=== PATIENT | male | born 1965 | race Caucasian/White ===

== ENCOUNTER 2021-04-24 10:57 | Inpatient (IN) | payer MEDICAID, SELFPAY ==
[2021-04-24] VITALS (12 sets, daily range): BP systolic 100–154; BP diastolic 75–113; PULSE 86–120; RESP 17–24; TEMP 36.4–36.9; O2SAT 95–97; BMI 32.2
--- NOTE | 2021-04-24 11:12 | EKG12_ITS ---
Test Reason : CP/SOB Blood Pressure : / mmHG Vent. Rate : 121 BPM Atrial Rate : 121 BPM P-R Int : 158 ms QRS Dur : 084 ms QT Int : 326 ms P-R-T Axes : 052 015 157 degrees QTc Int : 462 ms Sinus tachycardia with occasional Premature ventricular complexes Nonspecific ST and T wave abnormality Abnormal ECG Confirmed by CHAZ GARCIA, ASHLIE ([id number]), sound editor VALE BERMEO ([id number]) on 04/26/2021 12:52:00 PM Referred By: MART Confirmed By:ASHLIE WARE MD
--- NOTE | 2021-04-24 11:12 | CT_ITS ---
STUDY: CTA CHEST REASON FOR EXAM: Male, 55 years old. dyspnea RADIATION DOSAGE (If Supplied By Facility): CTDIvol = ( 15.04 ) mGy, DLP = ( 519.46 ) mGycm TECHNIQUE: The examination was performed with the intravenous administration of IV 100mL Isovue-370. Post-processing of the angiographic images was performed, with multiplanar reformation and 3D reconstruction. Individualized dose optimization techniques were used for this CT. COMPARISON: None. FINDINGS: Normal enhancement of the main pulmonary artery and right and left pulmonary arteries. Normal enhancement of the bilateral peripheral pulmonary arteries. There is no demonstrated pulmonary embolism. Normal thoracic aorta and visualized great vessels. There is no demonstrated aortic dissection. Normal heart and pericardium. Normal mediastinum. Normal hilar regions. Normal visualized trachea and bronchi. The lungs are well expanded. Bilateral basilar posterior atelectatic changes are present secondary to effusions. Moderate bilateral layering pleural effusions are present. Normal chest wall structures. Normal osseous structures. Normal visualized upper abdomen. CT/CTA Chest W/WO Contrast IMPRESSION: 1. No evidence of pulmonary embolism or aortic dissection. 2. Moderate bilateral pleural effusions and posterior basilar atelectatic changes with no distinct focal consolidation. Electronically Signed: Parker Aldridge DO at 12:26 EDT , Service support ,
--- NOTE | 2021-04-24 11:15 | NURSING ---
NO OLD EKGS
[2021-04-24 11:18] LABS: Absolute Lymphocyte Count 1.71 X10^3/uL (0.83-4.51); Absolute Neutrophil Count 6.3 X10^3/uL (2.0-7.7); Basophil# 0.02 X10^3/uL; Basophil% 0.2 % (0-1); Eosinophil# 0.09 X10^3/uL; Hematocrit 50.5 % (40-54); Lymphocyte # 1.71 X10^3/ul (0.83-4.51); Lymphocyte % 18.7 % (19-41); Mean Corp Hgb Conc 31.7 g/dL (32-36); Mean Corpuscular Hgb 29.7 pg (27.0-32.0); Mean Corpuscular Volume 93.7 fL (80-94); Mean Platelet Vol. 10.5 fl (6.2-12.0); Monocyte# 0.96 X10^3/uL; Monocyte% 10.5 % (0-10); NRBC Flagged by Analyzer 0 % (0-5); Neutrophil # 6.34 X10^3/uL (2.7-7.7); Neutrophil % 69.3 % (47-70); Platelet Count 217 K/mm3 (150-450); RBC Distribution Width SD 48.6 fl (35.1-43.9); Red Blood Count 5.39 M/mm3 (4.6-6.2); White Blood Count 9.2 K/mm3 (4.4-11.0)
[2021-04-24 11:44] LABS: BNP,B-Type NATRIURETIC PEPTIDE 583.8 pg/mL (0-100)
[2021-04-24] MEDS: Aspirin 81 MG TAB.CHEW 324 MG PO (11:47)
[2021-04-24 11:48] LABS: Anion Gap 6 (5-15); BUN 26 mg/dL (7-18); Calcium,Total 9.5 mg/dL (8.5-10.1); Chloride 105 mmol/L (98-107); Creatinine, Serum 1.18 mg/dL (0.70-1.30); EST Glomerular Filtration Rate 68 mL/min (>60); Est Glom Filt Rate - Afr Amer 82 mL/min (>60); Estimated Creatinine Clearance 76.22 ml/min; Glucose 216 mg/dL (74-106); Magnesium 2.2 mg/dL (1.6-2.6); Potassium 4.3 mmol/L (3.5-5.1); Sodium Level 140 mmol/L (136-145); Thyroid Stim Hormone (TSH) 1.44 uIU/mL (0.358-3.74)
--- NOTE | 2021-04-24 12:47 | HP.PCM.HOS_ITS ---
HPI - General General Date of Admission: 04/24/21 HPI Narrative SIMEON العراقي, is a 55 M who presents with a complaint of shortness of breath which had been going on for one week and worsening. He had associated heaviness in his chest, with lower extremity edema. He says he recently had his medical tests 3 weeks ago for his life insurance, and was told his A1C was elevated at 7.8. He does not have a PCP and states he has not seen one in years and did not see any doctor about his A1c yet. He also said he had been having chest pressure and heaviness as the shortness of breath worsened. He denied any orthopnea or PND. He was also found to have a new heart murmur. He denied any palpitations or dizziness, fever chills, nausea vomiting. Review of systems otherwise negative. Vitals in [facility] ED showed temp of 97.9F with HR of 120, blood pressure of 154/113 and respiratory of 24. He was saturating at 97% on room air. CTA of the chest done was negative for PE but showed bilateral pleural effusions. EKG showed no acute ST changes. CBC and BMP were unremarkable and BNP was elevated at 583.8. Initial troponin was negative. He has been admitted to be managed for acute heart failure of unknown EF as well as new murmur. [facility] Home Medications NK 04/24/21 [History Last Taken Unknown] Allergy/AdvReac Type Severity Reaction Status Date / Time Penicillins [PCN] Allergy PT UNSURE Verified 04/24/21 10:59 OF REACTION Social History Smoking Status: Never smoker ROS Review of Systems ROS Unobtainable: Denies due to encephalopathy Constitutional Constitutional: Reports fatigue, malaise and weakness; Denies anorexia, change in weight, chills or fever(s) Eyes Eyes: Denies blurry vision ENT HEENT: Denies headache(s), hearing loss, nasal discharge or post nasal drip Cardiovascular Cardiovascular: Reports dyspnea on exertion, edema, orthopnea, palpitations and rapid heart rate; Denies chest pain, lightheadedness or paroxysmal nocturnal dyspnea Respiratory/Chest Respiratory/Chest: Reports dyspnea, shortness of breath at rest and shortness of breath with exertion; Denies cough, excessive phlegm production, hemoptysis or productive cough Gastrointestinal Gastrointestinal: Denies abdominal pain, coffee ground emesis, nausea or vomiting Genitourinary Genitourinary: Denies burning urination Musculoskeletal Musculoskeletal: Denies arthralgias Neurologic Neurologic: Denies abnormal gait or abnormal speech Psychiatric Psychiatric: Denies anxiety or depression Endocrine Endocrinology: Denies change in body appearance Hematologic/Lymphatic Hematologic/Lymphatic: Denies anemia Allergic/Immunologic Allergic/Immunologic: Denies asthma Vital Signs Vital Signs Vital Signs: 04/24/21 10:58 04/24/21 11:00 04/24/21 11:06 Temperature 97.9 F 97.9 F Temperature Source Temporal Temporal Pulse Rate 120 H 120 H Respiratory Rate 22 H 24 H 24 H Respiratory Effort Non-Labored Short of Breath Respiratory Depth Normal Respiratory Pattern Tachypnea Blood Pressure 154/113 H 154/113 H Blood Pressure Mean 126 126 Pulse Ox 97 97 Oxygen Delivery Method Room Air Room Air 04/24/21 11:24 Temperature Temperature Source Pulse Rate Respiratory Rate Respiratory Effort Respiratory Depth Respiratory Pattern Blood Pressure Blood Pressure Mean Pulse Ox 97 Oxygen Delivery Method Room Air Weight Weight: 231 lb 0.711 oz Body Mass Index (BMI) 32.2 Physical Exam Const alert, oriented x3 and no apparent distress General Appearance: cooperative HEENT normocephalic, head/scalp atraumatic and hearing grossly normal bilaterally Eyes PERRL, EOMs intact bilaterally and conjunctivae normal Neck no lymphadenopathy, supple and no JVD Resp Resp Narrative: tachypneic, short of breath, diminished breath sounds bibasally, no wheezes or crackles. On room air. Cardio regular rate, regular rhythm, S1 normal heart sound and S2 normal heart sound Cardio Narrative: grade 2-3 systolic murmur loudest in the aortic region, but also present in the tricuspid and pulmonary valvular regions. GI normal to inspection, nondistended, normoactive bowel sounds, soft to palpation, non-tender and non-distended Extremity normal to inspection and full ROM Extremity Narrative: bilateral 2+ lower extremity edema Peripheral Pulses: Yes pulses 2+ throughout Skin no rashes or lesions noted Neuro oriented x3 Sensorium / Orientation: awake and alert Psych affect normal Lab / Micro Data Result Diagrams: 04/24/21 11:10 04/24/21 11:10 Labs: Laboratory Results - last 24 hr 04/24/21 04/24/21 04/24/21 11:10 11:10 11:10 WBC 9.2 RBC 5.39 Hgb 16.0 Hct 50.5 MCV 93.7 MCH 29.7 MCHC 31.7 L RDW Std Deviation 48.6 H RDW Coeff of Vance 14.0 Plt Count 217 MPV 10.5 Immature Gran % (Auto) 0.300 Neut % (Auto) 69.3 Lymph % (Auto) 18.7 L [place] % (Auto) 10.5 H Eos % (Auto) 1.0 Baso % (Auto) 0.2 Absolute Neuts (auto) 6.3 Absolute Lymphs (auto) 1.71 Nucleated RBC % 0 Sodium 140 Potassium 4.3 Chloride 105 Carbon Dioxide 29.0 Anion Gap 6 BUN 26 H Creatinine 1.18 Estim Creat Clear Calc 76.22 Est GFR (MDRD) Af Amer 82 Est GFR (MDRD) Non-Af 68 BUN/Creatinine Ratio 22.0 H Glucose 216 H Calcium 9.5 Magnesium 2.2 Troponin I 0.029 B-Natriuretic Peptide 583.8 H TSH 1.44 Radiology Impression Chest CTA 04/24/21 11:12 IMPRESSION: 1. No evidence of pulmonary embolism or aortic dissection. 2. Moderate bilateral pleural effusions and posterior basilar atelectatic changes with no distinct focal consolidation. Electronically Signed: Parker AldridgeDO at 12:26 EDT , Service support , Assessment & Plan Assessment/Plan (1) Acute heart failure: (2) Murmur, cardiac: PLAN: #Acute heart failure of unknown EF * Admit to the PCU with telemetry * Start diuresing with IV Lasix 40 mg twice daily. Monitor intake and output. Fluid restriction 1500 cc daily. * Cardiology consulted. Get 2D echo. * Breathing treatments with bronchodilators. Titrate oxygen to maintain saturation above 90%. * #Cardiac murmur * appears to be an aortic stenosis murmur. 2D echo ordered * #Type 2 diabetes mellitus * says he was recently told his A1C was 7.8. Will recheck A1C and start on ISS and oral metformin. * Accuchecks ACHS * DVT prophylaxis: lovenox Code status: full code * Patient and his counseled about differences between full code, DNR CCA and DNR CCA. Patient elects to be full code. Total [id number] time 16 minutes. Visit Charges Inpatient E&M: 64728 Init Hosp L3 Procedures Hospitalists Procedures: 43878 Advncd Care Plan 30 Min
[2021-04-24] MEDS: Furosemide 40 MG/4 ML Vial IV ×2 (12:55→18:03)
--- NOTE | 2021-04-24 12:55 | EDS_ITS ---
HPI History of Present Illness Chief Complaint: Shortness of Breath Informant: patient Narrative Narrative: 55-year-old male with no past medical history presents with concern for shortness of breath. States is progressed over 1 week. States he is also had swelling in his lower extremities. States last night he felt a heaviness in his chest. States that is resolved today but his shortness of breath is worse particularly on exertion. Denies any nausea, vomiting, diaphoresis. Patient denies any drug alcohol or tobacco abuse. Denies any fever, chills, cough or sick contacts. PFSH PFSH Home Medications NK 04/24/21 [History Last Taken Unknown] Allergy/AdvReac Type Severity Reaction Status Date / Time Penicillins [PCN] Allergy PT UNSURE Verified 04/24/21 10:59 OF REACTION Social History Smoking Status: Never smoker ROS ROS ED Constitutional Constitutional ED: Denies chills, fever(s) or sweats Eyes Eyes: Denies blurry vision, change in vision or diplopia ENT ENT ED: Denies rhinorrhea or sore throat Cardiovascular Cardiovascular: Reports chest pain; Denies orthopnea, palpitations or racing heartbeat Respiratory/Chest Respiratory/Chest: Reports dyspnea and dyspnea on exertion; Denies cough, orthopnea or sputum Gastrointestinal Gastrointestinal: Denies abdominal pain, constipation, diarrhea, melena, nausea or vomiting Genitourinary Genitourinary ED: Denies dysuria, hematuria or urinary frequency Musculoskeletal Musculoskeletal: Reports other Details: Lower extremity edema ; Denies arthralgias, myalgias or neck pain Integumentary Denies rash Neurologic Neurologic: Denies headache(s), paresthesias or weakness Psychiatric Psychiatric: Denies anxiety or depression Hematologic/Lymphatic Hematologic/Lymphatic: Denies easy bleeding or easy bruising Allergic/Immunologic Allergic/Immunologic ED: Denies mouth swelling or tongue swelling EXAM Physical Exam Const Vital Signs: 04/24/21 10:58 04/24/21 11:00 04/24/21 11:06 Temperature 97.9 F 97.9 F Temperature Source Temporal Temporal Pulse Rate 120 H 120 H Respiratory Rate 22 H 24 H 24 H Respiratory Effort Non-Labored Short of Breath Respiratory Depth Normal Respiratory Pattern Tachypnea Blood Pressure 154/113 H 154/113 H Blood Pressure Mean 126 126 Pulse Ox 97 97 Oxygen Delivery Method Room Air Room Air 04/24/21 11:24 Temperature Temperature Source Pulse Rate Respiratory Rate Respiratory Effort Respiratory Depth Respiratory Pattern Blood Pressure Blood Pressure Mean Pulse Ox 97 Oxygen Delivery Method Room Air Positive well nourished and well developed General Appearance ED: well developed HEENT Reports moist mucous membranes normocephalic and atraumatic Eyes PERRL and EOMs intact bilaterally Neck no lymphadenopathy, supple and no JVD Chest Wall inspection of chest normal Resp normal respiratory effort and clear to auscultation bilaterally Cardio regular rate, S1 normal heart sound and S2 normal heart sound Rate: other Other Details: Holosystolic murmur. Peripheral Pulses: pulses 2+ throughout GI soft to palpation, non-tender and non-distended Back/Spine no CVA tenderness and no thoracic nor lumbar tenderness Extremity normal to inspection Extremity Narrative: 1-2+ pitting edema. General Extremety ED: Yes edema; Negative for tenderness General Extremity: edema Neuro oriented x3, CN's II-XII intact bilaterally and no sensory deficits noted Sensorium / Orientation: alert Motor Exam: strength 5/5 throughout Psych mental status grossly normal Skin no rashes or lesions noted MDM MDM MDM Narrative Medical decision making narrative: Patient appears well nontoxic. Tachycardic upon arrival. Peripheral edema with complaints of shortness of breath. New murmur on exam. Troponin negative. BNP slightly elevated. CTA shows no pulmonary embolism however does reveal bilateral pleural effusions. Concern for valvular disorder with developing heart failure. Patient given aspirin and Lasix. Spoke with sewer separation designer on-call Dr. Zeng, who examined the patient. Spoke with hospitalist who is agreeable with admission. Patient admitted in stable condition. Lab Data Attestation: I reviewed the patient's lab results. Labs: Laboratory Results - last 24 hr 04/24/21 04/24/21 04/24/21 11:10 11:10 11:10 WBC 9.2 RBC 5.39 Hgb 16.0 Hct 50.5 MCV 93.7 MCH 29.7 MCHC 31.7 L RDW Std Deviation 48.6 H RDW Coeff of Vance 14.0 Plt Count 217 MPV 10.5 Immature Gran % (Auto) 0.300 Neut % (Auto) 69.3 Lymph % (Auto) 18.7 L [place] % (Auto) 10.5 H Eos % (Auto) 1.0 Baso % (Auto) 0.2 Absolute Neuts (auto) 6.3 Absolute Lymphs (auto) 1.71 Nucleated RBC % 0 Sodium 140 Potassium 4.3 Chloride 105 Carbon Dioxide 29.0 Anion Gap 6 BUN 26 H Creatinine 1.18 Estim Creat Clear Calc 76.22 Est GFR (MDRD) Af Amer 82 Est GFR (MDRD) Non-Af 68 BUN/Creatinine Ratio 22.0 H Glucose 216 H Calcium 9.5 Magnesium 2.2 Troponin I 0.029 B-Natriuretic Peptide 583.8 H TSH 1.44 Radiography Diagnostic Testing: Radiology Impression Chest CTA 04/24/21 11:12 IMPRESSION: 1. No evidence of pulmonary embolism or aortic dissection. 2. Moderate bilateral pleural effusions and posterior basilar atelectatic changes with no distinct focal consolidation. Electronically Signed: Parker Aldridge DO at 12:26 EDT , Service support , Rhythm Strip Rhythm Strip: Sinus tachycardia Rate: 121 Ectopy: PVC(s) EKG Initial EKG: Attestation: I personally reviewed and interpreted this EKG as follows: Interpretation: Sinus Tachycardia Comments: Sinus tachycardia at a rate of 121 bpm. LVH. PVCs. WI interval 150 ms. QTC of 462 ms. Discharge Plan Triage Chief Complaint: Shortness of Breath ED Provider: Karsten Garrison Dx/Rx/DC Orders Clinical Impression: Acute heart failure, Murmur, cardiac, Pleural effusion Prescriptions: No Action NK RF: 0 Primary Care Provider: Care Physician,No Primary Referrals: Care Physician,No Primary [Primary Care Provider] - Disposition Disposition: Acute Care Hospital [facility]
--- NOTE | 2021-04-24 13:00 | NURSING ---
PCU KORAM DYSPNEA
--- NOTE | 2021-04-24 14:25 | ECHOCS_ITS ---
Version 2 Reason For Study: MURMUR Procedure This was a 2D Doppler, Color Flow transthoracic echocardiogram. The study was technically difficult. Exam performed portable in patient room. Left Ventricle Normal LV size. The estimated ejection fraction is 15 %. Severe global left ventricular systolic dysfunction. Stage 3 diastolic dysfunction. There is severe global hypokinesis of the left ventricle. Right Ventricle Normal RV size. Normal systolic function. Atria The left atrium is mildly enlarged. The right atrium is mildly enlarged. Mitral Valve Normal mitral valve. Tricuspid Valve Normal tricuspid valve. Mild (1+) tricuspid valve insufficiency. Pulmonary artery systolic pressure is 35 mmHg. Aortic Valve Severe focal aortic valve calcification. Bicuspid aortic valve. Peak aortic valve gradient 64 mmHg. Mean aortic valve gradient 40 mmHg. Severe aortic stenosis. Calculated aortic valve area (continuity equation) is 0.5 cm2. Pulmonic Valve Normal pulmonic valve. Great Vessels Normal aortic root. The pulmonary artery is normal size. No collapse of the inferior vena cava. Pericardium/Pleural No pericardial effusion. Medication Diluted definity 2ml given slow IV push to enhance endocardial definition. MMode/2D Measurements & Calculations LVIDd: 5.7 cm IVSd: 1.1 cm LVOT diam: 2.0 cm LVIDs: 4.8 cm LVPWd: 1.1 cm RVDd: 4.6 cm FS: 15.4 % LVOT area: 3.1 cm2 Ao root diam: 3.3 cm LAV(MOD-bp): 86.5 ml LVAd ap4: 34.9 cm2 LAV(MOD-bp) Indexed: 38.6 ml/m2 LVLd ap4: 8.8 cm LAV(MOD-sp2): 82.6 ml EDV(MOD-sp4): 114.5 ml LAV(MOD-sp4): 75.4 ml EDV(sp4-el): 117.3 ml LVAs ap4: 27.8 cm2 LVLs ap4: 8.1 cm ESV(MOD-sp4): 80.7 ml ESV(sp4-el): 81.2 ml EF(MOD-sp4): 29.6 % EF(sp4-el): 30.8 % SV(MOD-sp4): 33.9 ml SV(sp4-el): 36.1 ml Aortic Valve Planimetry: 0.52 cm2 LA A4 area: 25.3 cm2 LA dimension(2D): 4.6 cm RA A4 area: 23.8 cm2 Time Measurements MV dec time: 0.18 sec Doppler Measurements & Calculations MV E max med: 103.2 cm/sec Lat Peak E' Med: 7.3 cm/sec Med Peak E' Med: 5.2 cm/sec MV A max med: 36.4 cm/sec E/E' lat: 14.1 E/E' med: 19.9 MV E/A: 2.8 Ao V2 max: 399.4 cm/sec LV V1 max: 62.3 cm/sec SV(LVOT): 44.7 ml Ao max P.8 mmHg LV V1 max P.6 mmHg Ao V2 mean: 298.4 cm/sec LV V1 mean P.97 mmHg Ao mean P.4 mmHg LV V1 mean: 46.4 cm/sec Ao V2 VTI: 95.1 cm LV V1 VTI: 14.5 cm GUS(I,D): 0.47 cm2 GUS(V,D): 0.48 cm2 PA V2 max: 62.2 cm/sec TR max med: 276.8 cm/sec TR max P.7 mmHg ECHO/Echo Complete W/ Contrast Interpretation Summary Normal LV size. The estimated ejection fraction is 15 %. Severe global left ventricular systolic dysfunction. Stage 3 diastolic dysfunction. Severe focal aortic valve calcification. Severe aortic stenosis. Calculated aortic valve area (continuity equation) is 0.5 cm2. Bicuspid aortic valve possible. Contrast injection was performed. Ordering Physician: Bipin Zeng Performed By: Jackeline Murguia RDCS
--- NOTE | 2021-04-24 14:27 | PCM.CONS.C ---
Assessment & Plan Assessment/Plan (1) Acute heart failure: PLAN: Patient presents with recent heart failure. This appears to be fairly acute. The etiology of the above is likely secondary to valvular heart disease as well as hypertensive heart disease Will recommend an echocardiogram to assess left ventricular function and to characterize the extent of the regurgitant jet We will start Lasix intravenously twice daily Start OSIRIS inhibitor Start beta-marisabel (2) Mitral insufficiency: PLAN: He does appear to have mitral regurgitation which is significant. This will be further characterized by the echocardiographic evaluation He may eventually need further evaluation of the above with a QUIANA and a left heart catheterization to see whether he is a candidate for mitral valve repair (3) HTN (hypertension), benign: PLAN: He does have a history of hypertension which is not very well controlled. We will recommend starting OSIRIS inhibitor We will also recommend starting a beta-marisabel Thank you for allowing me to participate in the care of your patient. Please don't hesitate to call if any issues arise. HPI Consult Data Date of Consult: 04/24/21 HPI Narrative HPI Narrative: SIMEON العراقي, is a 55 M who presents to the emergency room complaining of a few days history of pedal edema. In addition he says that yesterday he felt that he could not recline appropriately in bed. He denies any chest pain but he thinks he has had some paroxysmal nocturnal dyspnea and he certainly has pedal edema. He has not had a cough and does not have palpitations. He has not had any dizziness or diaphoresis no near syncope or syncope. He previously was not diagnosed with any cardiac condition. He was seen in the emergency room and noted to be tachycardic and hypertensive. I was called for further evaluation and management. He was also noted to have a cardiac murmur. PFSH Home Medications NK 04/24/21 [History Last Taken Unknown] Allergy/AdvReac Type Severity Reaction Status Date / Time Penicillins [PCN] Allergy PT UNSURE Verified 04/24/21 10:59 OF REACTION Social History Smoking Status: Never smoker ROS Constitutional Constitutional: Reports as per HPI Eyes Eyes: Reports as per HPI ENT HEENT: Reports as per HPI Cardiovascular Cardiovascular: Reports fatigue, flutter in chest, pedal edema and weight gain; Denies chest pain Respiratory/Chest Respiratory/Chest: Reports dyspnea, dyspnea on exertion and shortness of breath with exertion Gastrointestinal Gastrointestinal: Reports none Genitourinary Genitourinary: Reports none Musculoskeletal Musculoskeletal: Reports none Integumentary Integumentary: Reports none Neurologic Neurologic: Reports none Psychiatric Psychiatric: Reports none Endocrine Endocrinology: Reports none Hematologic/Lymphatic Hematologic/Lymphatic: Reports none Physical Exam Const oriented x3 and healthy appearing Orientation / Consciousness: awake HEENT normocephalic Eyes PERRL and conjunctivae normal Neck supple and no carotid bruits General: JVD Carotids: bounding pulses Chest inspection of chest normal Resp normal respiratory effort and clear to auscultation bilaterally Cardio Palpation: abnormal PMI Rate: tachycardic Rhythm: regular rhythm Heart Sounds: S1 normal, S2 normal, gallop and murmur systolic Peripheral Pulses: pulses 2+ throughout GI normal to inspection, nondistended, normoactive bowel sounds Extremity normal to inspection and no clubbing, cyanosis or edema Psych mental status grossly normal Objective Data Vital Signs: Vital Signs Temp Pulse Resp BP Pulse Ox 97.7 F L 115 H 18 125/92 H 95 04/24/21 13:14 04/24/21 13:14 04/24/21 13:14 04/24/21 13:14 04/24/21 13:14 Oxygen Delivery Method Room Air Weight: 231 lb 0.711 oz Body Mass Index (BMI) 32.2 Lab / Micro Data Result Diagrams: 04/24/21 11:10 04/24/21 11:10 Labs: Laboratory Results - last 24 hr 04/24/21 04/24/21 04/24/21 11:10 11:10 11:10 WBC 9.2 RBC 5.39 Hgb 16.0 Hct 50.5 MCV 93.7 MCH 29.7 MCHC 31.7 L RDW Std Deviation 48.6 H RDW Coeff of Vance 14.0 Plt Count 217 MPV 10.5 Immature Gran % (Auto) 0.300 Neut % (Auto) 69.3 Lymph % (Auto) 18.7 L [place] % (Auto) 10.5 H Eos % (Auto) 1.0 Baso % (Auto) 0.2 Absolute Neuts (auto) 6.3 Absolute Lymphs (auto) 1.71 Nucleated RBC % 0 Sodium 140 Potassium 4.3 Chloride 105 Carbon Dioxide 29.0 Anion Gap 6 BUN 26 H Creatinine 1.18 Estim Creat Clear Calc 76.22 Est GFR (MDRD) Af Amer 82 Est GFR (MDRD) Non-Af 68 BUN/Creatinine Ratio 22.0 H Glucose 216 H Calcium 9.5 Magnesium 2.2 Troponin I 0.029 B-Natriuretic Peptide 583.8 H TSH 1.44 Micro: Microbiology 04/24/21 13:06 Mucosa - Nasopharyngeal SARS-CoV-2 Antigen (Rapid) - Final Rhythm Strip Rhythm Strip: Sinus tachycardia Rate: 121 Ectopy: PVC(s) Cardiology Labs/Tests 04/24/21 11:10: WBC 9.2, RBC 5.39, Hgb 16.0, Hct 50.5, MCV 93.7, MCH 29.7, MCHC 31.7 L, Plt Count 217, MPV 10.5, Immature Gran % (Auto) 0.300, Neut % (Auto) 69.3, Lymph % (Auto) 18.7 L, [place] % (Auto) 10.5 H, Eos % (Auto) 1.0, Baso % (Auto) 0.2, Absolute Neuts (auto) 6.3, Nucleated RBC % 0 04/24/21 11:10: Sodium 140, Potassium 4.3, Chloride 105, Carbon Dioxide 29.0, Anion Gap 6, BUN 26 H, Creatinine 1.18, Est GFR (MDRD) Af Amer 82, Est GFR (MDRD) Non-Af 68, BUN/Creatinine Ratio 22.0 H, Glucose 216 H, Calcium 9.5, Magnesium 2.2, Troponin I 0.029 04/24/21 11:10: B-Natriuretic Peptide 583.8 H Rhythm: EKG: Sinus tachycardia ECHO: Stress Test: Cardiac Cath: PCI: CT Surgery: Holter monitor: EPS: PPM: CXR: Chest CT Scan: Radiography Diagnostic Testing: Radiology Impression Chest CTA 04/24/21 11:12 IMPRESSION: 1. No evidence of pulmonary embolism or aortic dissection. 2. Moderate bilateral pleural effusions and posterior basilar atelectatic changes with no distinct focal consolidation. Electronically Signed: Parker Aldridge DO at 12:26 EDT , Service support ,
[2021-04-24 16:46] LABS: Hemoglobin A1c 7.7 % (3.8-5.6)
[2021-04-24 17:05] LABS: Bedside Glucose 158 mg/dL (70-110)
[2021-04-24] MEDS: Lisinopril 5 MG Tablet PO (21:12)
[2021-04-24] MEDS: Insulin Lispro 100 UNIT/ML INSULN.PEN SC (21:12)
[2021-04-24] MEDS: Carvedilol 6.25 MG Tablet PO (21:12)
[2021-04-24 21:21] LABS: Bedside Glucose 200 mg/dL (70-110)
[2021-04-25] VITALS (11 sets, daily range): BP systolic 91–115; BP diastolic 58–90; PULSE 71–102; RESP 16–18; TEMP 36.4–36.8; O2SAT 96–100
--- NOTE | 2021-04-25 04:49 | EKG12_ITS ---
Test Reason : DYSRHYTHMIA Blood Pressure : / mmHG Vent. Rate : 080 BPM Atrial Rate : 080 BPM P-R Int : 164 ms QRS Dur : 084 ms QT Int : 448 ms P-R-T Axes : 057 015 160 degrees QTc Int : 516 ms Sinus rhythm with frequent Premature ventricular complexes in a pattern of bigeminy Left ventricular hypertrophy T wave abnormality, consider anterolateral ischemia Prolonged QT Abnormal ECG Confirmed by CHAZ GARCIA, ASHLIE ([id number]), industrial editor VALE BERMEO ([id number]) on 04/26/2021 1:22:13 PM Referred By: BRAEDEN Confirmed By:ASHLIE WARE MD
[2021-04-25 07:07] LABS: Absolute Lymphocyte Count 1.63 X10^3/uL (0.83-4.51); Absolute Neutrophil Count 4.3 X10^3/uL (2.0-7.7); Basophil# 0.04 X10^3/uL; Basophil% 0.6 % (0-1); Eosinophil# 0.14 X10^3/uL; Hematocrit 47.5 % (40-54); Lymphocyte # 1.63 X10^3/ul (0.83-4.51); Mean Corp Hgb Conc 31.6 g/dL (32-36); Mean Corpuscular Hgb 29.4 pg (27.0-32.0); Mean Corpuscular Volume 93.1 fL (80-94); Mean Platelet Vol. 10.6 fl (6.2-12.0); Monocyte# 1.03 X10^3/uL; Monocyte% 14.5 % (0-10); NRBC Flagged by Analyzer 0 % (0-5); Neutrophil # 4.25 X10^3/uL (2.7-7.7); Neutrophil % 59.8 % (47-70); Platelet Count 220 K/mm3 (150-450); RBC Distribution Width SD 47.8 fl (35.1-43.9); White Blood Count 7.1 K/mm3 (4.4-11.0)
[2021-04-25 07:33] LABS: Anion Gap 6 (5-15); BUN 21 mg/dL (7-18); BUN/Creat Ratio 19.8 RATIO (10-20); Calcium,Total 9.1 mg/dL (8.5-10.1); Chloride 104 mmol/L (98-107); Cholesterol 147 mg/dL (200); Creatinine, Serum 1.06 mg/dL (0.70-1.30); EST Glomerular Filtration Rate 77 mL/min (>60); Est Glom Filt Rate - Afr Amer 93 mL/min (>60); Estimated Creatinine Clearance 84.85 ml/min; Glucose 181 mg/dL (74-106); High Density Lipoprotein 30 mg/dL; Potassium 4.4 mmol/L (3.5-5.1); Sodium Level 141 mmol/L (136-145); Triglycerides 74 mg/dL; Very Low Density Lipoprotein 15 mg/dL (5-40)
[2021-04-25] MEDS: Lisinopril 5 MG Tablet PO (08:35)
[2021-04-25] MEDS: Furosemide 40 MG/4 ML Vial IV (08:35)
[2021-04-25] MEDS: Enoxaparin 40 MG/0.4 ML Syringe SC (08:35)
[2021-04-25] MEDS: Carvedilol 6.25 MG Tablet PO (08:35)
[2021-04-25] MEDS: Insulin Lispro 100 UNIT/ML INSULN.PEN SC ×3 (10:16→21:54)
[2021-04-25 11:38] LABS: Bedside Glucose 176 mg/dL (70-110)
[2021-04-25 11:38] LABS: Bedside Glucose 173 mg/dL (70-110)
[2021-04-25 11:55] LABS: Bedside Glucose 159 mg/dL (70-110)
--- NOTE | 2021-04-25 12:30 | CASEMGMT ---
TREVON FRANCO assessment: Face to Face with patient for initial transition planning/care coordination assessment. TREVON FRANCO introduced self and role at [facility], pt voices understanding and consents to assessment. Pt is sitting up in chair in no distress on room air. Pt is A/Ox4 and answers all questions appropriately. Pt's and daughter are at bedside during assessment. Care providers, pharmacy, and demographics verified. Presentation: Pt presents with SOB/edema Admitting dx: Acute HF PCP: Pt states no current PCP and also lives in [facility]. Specialists: Pt states no current specialists. Preferred Pharmacy: [facility] Insurance: Self pay, [id number] states 'I don't have enough money for insurance.' Damari DUKE aware, voices understanding. Prescription Benefit: none Living Will/HPOA: Pt has LW/HPOA and is aware that they are not on file at [facility]. Pt states his , Janay Horvath, is HPOA. LNOK: Janay Horvath, Living Arrangements: Pt states lives with in 1 story home and states no concerns at home. Pt states is independent with ADL's. Transportation: Pt states drives self and states no transportation concerns. DME/HHC: Pt states no current DME or need for any at this time. Pt states no hx of HHC or SNF. Pt states no concerns with going home at time of discharge. Pt is self-employed. Pt states does not smoke cigarettes or drink ETOH. Pt states no further concerns/needs. CM to follow for any further discharge planning/needs. Advised pt/ to ask for CM if any further questions/concerns/needs arise, voices understanding. Pt Goal: Home Plan[place] TREVON FRANCO
--- NOTE | 2021-04-25 12:52 | PN.CARD_ITS ---
Subjective Subjective Patient seen and evaluated. Objective Data Vital Signs: Vital Signs Temp Pulse Resp BP Pulse Ox 98.3 F 90 18 104/64 97 04/25/21 08:27 04/25/21 08:27 04/25/21 08:27 04/25/21 08:27 04/25/21 08:27 Oxygen Delivery Method Room Air Weight: 231 lb 0.711 oz Body Mass Index (BMI) 32.2 Intake & Output: Intake and Output for Last 24 Hours 04/23/21 04/24/21 04/25/21 23:59 23:59 23:59 Intake Total 150 / 210 60 / 60 Balance 150 / 210 60 / 60 Lab / Micro Data Result Diagrams: 04/25/21 06:58 04/25/21 06:58 Labs: Laboratory Results - last 24 hr 04/24/21 04/24/21 04/24/21 15:48 15:48 16:57 WBC RBC Hgb Hct MCV MCH MCHC RDW Std Deviation RDW Coeff of Vance Plt Count MPV Immature Gran % (Auto) Neut % (Auto) Lymph % (Auto) [place] % (Auto) Eos % (Auto) Baso % (Auto) Absolute Neuts (auto) Absolute Lymphs (auto) Nucleated RBC % Sodium Potassium Chloride Carbon Dioxide Anion Gap BUN Creatinine Estim Creat Clear Calc Est GFR (MDRD) Af Amer Est GFR (MDRD) Non-Af BUN/Creatinine Ratio Glucose Hemoglobin A1c 7.7 H Calcium Troponin I 0.030 Triglycerides Cholesterol LDL Cholesterol VLDL Cholesterol HDL Cholesterol POC Glucose 158 H 04/24/21 04/24/21 04/25/21 18:15 21:11 06:39 WBC RBC Hgb Hct MCV MCH MCHC RDW Std Deviation RDW Coeff of Vanec Plt Count MPV Immature Gran % (Auto) Neut % (Auto) Lymph % (Auto) [place] % (Auto) Eos % (Auto) Baso % (Auto) Absolute Neuts (auto) Absolute Lymphs (auto) Nucleated RBC % Sodium Potassium Chloride Carbon Dioxide Anion Gap BUN Creatinine Estim Creat Clear Calc Est GFR (MDRD) Af Amer Est GFR (MDRD) Non-Af BUN/Creatinine Ratio Glucose Hemoglobin A1c Calcium Troponin I 0.040 Triglycerides Cholesterol LDL Cholesterol VLDL Cholesterol HDL Cholesterol POC Glucose 200 H 173 H 04/25/21 04/25/21 04/25/21 06:58 06:58 08:32 WBC 7.1 RBC 5.10 Hgb 15.0 Hct 47.5 MCV 93.1 MCH 29.4 MCHC 31.6 L RDW Std Deviation 47.8 H RDW Coeff of Vance 14.0 Plt Count 220 MPV 10.6 Immature Gran % (Auto) 0.100 Neut % (Auto) 59.8 Lymph % (Auto) 23.0 [place]ro % (Auto) 14.5 H Eos % (Auto) 2.0 Baso % (Auto) 0.6 Absolute Neuts (auto) 4.3 Absolute Lymphs (auto) 1.63 Nucleated RBC % 0 Sodium 141 Potassium 4.4 Chloride 104 Carbon Dioxide 31.0 Anion Gap 6 BUN 21 H Creatinine 1.06 Estim Creat Clear Calc 84.85 Est GFR (MDRD) Af Amer 93 Est GFR (MDRD) Non-Af 77 BUN/Creatinine Ratio 19.8 Glucose 181 H Hemoglobin A1c Calcium 9.1 Troponin I Triglycerides 74 Cholesterol 147 LDL Cholesterol 102 VLDL Cholesterol 15 HDL Cholesterol 30 L POC Glucose 176 H 04/25/21 11:49 WBC RBC Hgb Hct MCV MCH MCHC RDW Std Deviation RDW Coeff of Vance Plt Count MPV Immature Gran % (Auto) Neut % (Auto) Lymph % (Auto) [place] % (Auto) Eos % (Auto) Baso % (Auto) Absolute Neuts (auto) Absolute Lymphs (auto) Nucleated RBC % Sodium Potassium Chloride Carbon Dioxide Anion Gap BUN Creatinine Estim Creat Clear Calc Est GFR (MDRD) Af Amer Est GFR (MDRD) Non-Af BUN/Creatinine Ratio Glucose Hemoglobin A1c Calcium Troponin I Triglycerides Cholesterol LDL Cholesterol VLDL Cholesterol HDL Cholesterol POC Glucose 159 H Micro: Microbiology 04/24/21 13:06 Mucosa - Nasopharyngeal SARS-CoV-2 Antigen (Rapid) - Final Rhythm Strip Rhythm Strip: Sinus tachycardia Rate: 121 Ectopy: PVC(s) Cardiology Labs/Tests 04/24/21 15:48: Hemoglobin A1c 7.7 H 04/24/21 15:48: Troponin I 0.030 04/24/21 18:15: Troponin I 0.040 04/25/21 06:58: WBC 7.1, RBC 5.10, Hgb 15.0, Hct 47.5, MCV 93.1, MCH 29.4, MCHC 31.6 L, Plt Count 220, MPV 10.6, Immature Gran % (Auto) 0.100, Neut % (Auto) 59.8, Lymph % (Auto) 23.0, [place] % (Auto) 14.5 H, Eos % (Auto) 2.0, Baso % (Auto) 0.6, Absolute Neuts (auto) 4.3, Nucleated RBC % 0 04/25/21 06:58: Sodium 141, Potassium 4.4, Chloride 104, Carbon Dioxide 31.0, Anion Gap 6, BUN 21 H, Creatinine 1.06, Est GFR (MDRD) Af Amer 93, Est GFR (MDRD) Non-Af 77, BUN/Creatinine Ratio 19.8, Glucose 181 H, Calcium 9.1, Triglycerides 74, Cholesterol 147, LDL Cholesterol 102, VLDL Cholesterol 15, HDL Cholesterol 30 L Rhythm: EKG: ECHO: Stress Test: Cardiac Cath: PCI: CT Surgery: Holter monitor: EPS: PPM: CXR: Chest CT Scan: Radiography Diagnostic Testing: Radiology Impression Echocardiogram 04/24/21 14:25 Interpretation Summary Normal LV size. The estimated ejection fraction is 15 %. Severe global left ventricular systolic dysfunction. Stage 3 diastolic dysfunction. Severe focal aortic valve calcification. Severe aortic stenosis. Calculated aortic valve area (continuity equation) is 0.5 cm2. Contrast injection was performed. Ordering Physician: Bipin Zeng Performed By: Jackeline Murguia RDCS Physical Exam Const oriented x3 and healthy appearing Orientation / Consciousness: awake HEENT normocephalic Eyes PERRL and conjunctivae normal Neck supple, no JVD and no carotid bruits Chest inspection of chest normal Resp normal respiratory effort and clear to auscultation bilaterally Cardio Palpation: normal PMI Rate: regular rate Rhythm: regular rhythm Heart Sounds: S1 normal, S2 normal and murmur Peripheral Pulses: pulses 2+ throughout GI normal to inspection, nondistended, normoactive bowel sounds Extremity normal to inspection and no clubbing, cyanosis or edema Psych mental status grossly normal Assessment & Plan Assessment/Plan (1) HTN (hypertension), benign: PLAN: Patient appears to have hypertension which is well controlled at this time. I would not recommend that we make any changes with regard to the above (2) Aortic stenosis: PLAN: Echocardiogram this morning demonstrates severe aortic stenosis and severe left ventricular systolic dysfunction. Would recommend a left heart catheterization to assess coronary anatomy and plan towards aortic valve replacement. I have discussed the above with the patient and his family they understand and agree to proceed and this be performed in a.m. (3) Cardiomyopathy: PLAN: He does appear to have a cardiomyopathy with severe left ventricular systolic dysfunction estimated EF 15% Due to the severe aortic stenosis would hold off on high-dose beta-marisabel or OSIRIS inhibitor. We will continue low-dose diuretic
--- NOTE | 2021-04-25 13:51 | PN.HOSP_ITS ---
Subjective Subjective Patient seen and examined. He felt much better today and had no complaints. He is remained hemodynamically stable and review of systems otherwise negative. Shortness of breath has improved markedly. Objective Data Objective Data Vital Signs: Vital Signs Temp Pulse Resp BP Pulse Ox 98.3 F 90 18 104/64 97 04/25/21 08:27 04/25/21 08:27 04/25/21 08:27 04/25/21 08:27 04/25/21 08:27 Oxygen Delivery Method Room Air Weight: 231 lb 0.711 oz Body Mass Index (BMI) 32.2 Intake & Output: Intake and Output for Last 24 Hours 04/23/21 04/24/21 04/25/21 23:59 23:59 23:59 Intake Total 150 / 210 300 / 300 Balance 150 / 210 300 / 300 Lab / Micro Data Result Diagrams: 04/25/21 06:58 04/25/21 06:58 Labs: Laboratory Results - last 24 hr 04/24/21 04/24/21 04/24/21 15:48 15:48 16:57 WBC RBC Hgb Hct MCV MCH MCHC RDW Std Deviation RDW Coeff of Vance Plt Count MPV Immature Gran % (Auto) Neut % (Auto) Lymph % (Auto) Hubbard % (Auto) Eos % (Auto) Baso % (Auto) Absolute Neuts (auto) Absolute Lymphs (auto) Nucleated RBC % Sodium Potassium Chloride Carbon Dioxide Anion Gap BUN Creatinine Estim Creat Clear Calc Est GFR (MDRD) Af Amer Est GFR (MDRD) Non-Af BUN/Creatinine Ratio Glucose Hemoglobin A1c 7.7 H Calcium Troponin I 0.030 Triglycerides Cholesterol LDL Cholesterol VLDL Cholesterol HDL Cholesterol POC Glucose 158 H 04/24/21 04/24/21 04/25/21 18:15 21:11 06:39 WBC RBC Hgb Hct MCV MCH MCHC RDW Std Deviation RDW Coeff of Vance Plt Count MPV Immature Gran % (Auto) Neut % (Auto) Lymph % (Auto) Hubbard % (Auto) Eos % (Auto) Baso % (Auto) Absolute Neuts (auto) Absolute Lymphs (auto) Nucleated RBC % Sodium Potassium Chloride Carbon Dioxide Anion Gap BUN Creatinine Estim Creat Clear Calc Est GFR (MDRD) Af Amer Est GFR (MDRD) Non-Af BUN/Creatinine Ratio Glucose Hemoglobin A1c Calcium Troponin I 0.040 Triglycerides Cholesterol LDL Cholesterol VLDL Cholesterol HDL Cholesterol POC Glucose 200 H 173 H 04/25/21 04/25/21 04/25/21 06:58 06:58 08:32 WBC 7.1 RBC 5.10 Hgb 15.0 Hct 47.5 MCV 93.1 MCH 29.4 MCHC 31.6 L RDW Std Deviation 47.8 H RDW Coeff of Vance 14.0 Plt Count 220 MPV 10.6 Immature Gran % (Auto) 0.100 Neut % (Auto) 59.8 Lymph % (Auto) 23.0 Hubbard % (Auto) 14.5 H Eos % (Auto) 2.0 Baso % (Auto) 0.6 Absolute Neuts (auto) 4.3 Absolute Lymphs (auto) 1.63 Nucleated RBC % 0 Sodium 141 Potassium 4.4 Chloride 104 Carbon Dioxide 31.0 Anion Gap 6 BUN 21 H Creatinine 1.06 Estim Creat Clear Calc 84.85 Est GFR (MDRD) Af Amer 93 Est GFR (MDRD) Non-Af 77 BUN/Creatinine Ratio 19.8 Glucose 181 H Hemoglobin A1c Calcium 9.1 Troponin I Triglycerides 74 Cholesterol 147 LDL Cholesterol 102 VLDL Cholesterol 15 HDL Cholesterol 30 L POC Glucose 176 H 04/25/21 11:49 WBC RBC Hgb Hct MCV MCH MCHC RDW Std Deviation RDW Coeff of Vance Plt Count MPV Immature Gran % (Auto) Neut % (Auto) Lymph % (Auto) Hubbard % (Auto) Eos % (Auto) Baso % (Auto) Absolute Neuts (auto) Absolute Lymphs (auto) Nucleated RBC % Sodium Potassium Chloride Carbon Dioxide Anion Gap BUN Creatinine Estim Creat Clear Calc Est GFR (MDRD) Af Amer Est GFR (MDRD) Non-Af BUN/Creatinine Ratio Glucose Hemoglobin A1c Calcium Troponin I Triglycerides Cholesterol LDL Cholesterol VLDL Cholesterol HDL Cholesterol POC Glucose 159 H Micro: Microbiology 04/24/21 13:06 Mucosa - Nasopharyngeal SARS-CoV-2 Antigen (Rapid) - Final Radiography Diagnostic Testing: Radiology Impression Echocardiogram 04/24/21 14:25 Interpretation Summary Normal LV size. The estimated ejection fraction is 15 %. Severe global left ventricular systolic dysfunction. Stage 3 diastolic dysfunction. Severe focal aortic valve calcification. Severe aortic stenosis. Calculated aortic valve area (continuity equation) is 0.5 cm2. Contrast injection was performed. Ordering Physician: Bipin Zeng Performed By: Jackeline Murguia RDCS Rhythm Strip Rhythm Strip: Sinus tachycardia Rate: 121 Ectopy: PVC(s) Physical Exam Const alert, oriented x3 and no apparent distress General Appearance: cooperative HEENT normocephalic, head/scalp atraumatic and hearing grossly normal bilaterally Head and Scalp: normocephalic Eyes PERRL, EOMs intact bilaterally and conjunctivae normal Neck no lymphadenopathy, supple and no JVD Resp normal respiratory effort, no retractions, no use of accessory muscles and clear to auscultation bilaterally Cardio regular rate, regular rhythm, S1 normal heart sound and S2 normal heart sound Cardio Narrative: grade 2-3 systolic murmur loudest in the aortic region, but also present in the tricuspid and pulmonary valvular regions. GI normal to inspection, nondistended, normoactive bowel sounds, soft to palpation, non-tender and non-distended Extremity normal to inspection and full ROM Extremity Narrative: bilateral 2+ lower extremity edema Peripheral Pulses: Yes pulses 2+ throughout Skin no rashes or lesions noted Neuro oriented x3 Sensorium / Orientation: awake and alert Psych affect normal Assessment & Plan Assessment/Plan (1) Acute heart failure: (2) Murmur, cardiac: PLAN: #Acute heart failure with reduced EF and stage 3 diastolic dysfunction * feels much better today. On IV lasix 40mg bid * 2D echo showed EF of 15% and severe global LV systolic dysfunction as well as stage 3 diastolic function, with severe global hypokinesis * PA systlic pressure is 35, and severe focal aortic valve calcification, with peak gradient of 4mmHg and severe aortic stenosis. * breathing treatments with bronchodilators. * titrate oxygen to maintain sats >90% * * #Severe aortic stenosis * 2D echo as above. * for cardiac cath tomorrow * cardiology on board * * #Type 2 diabetes mellitus * says he was recently told his A1C was 7.8. A1C checked here was 7.7 * on ISS. Accuchecks ACHS * to start on oral meds after the contrast administration with cardiac cath. * Accuchecks ACHS * lipid panel showed LDL of 102, and HDL of 30 and cholesterol of 147. * start on high intensity statin * DVT prophylaxis: lovenox Code status: full code * Visit Charges Inpatient E&M: 94567 Subs Hosp L3
--- NOTE | 2021-04-25 14:14 | CASEMGMT ---
SW met w/pt in regard to self pay status. SW provided [facility] application [facility] Pt plans to complete it when home as he does not have access to his income information here. SW also gave pt information for [facility] assist, prescription assist programs. No further needs at this time. MICHELLE Vargas
[2021-04-25 16:35] LABS: Bedside Glucose 147 mg/dL (70-110)
[2021-04-25] MEDS: Carvedilol 3.125 MG TABLET PO (21:54)
[2021-04-25 22:26] LABS: Bedside Glucose 167 mg/dL (70-110)
[2021-04-26] VITALS (12 sets, daily range): BP systolic 90–107; BP diastolic 63–82; PULSE 84–96; RESP 16–18; TEMP 36.2–36.6; O2SAT 91–98
[2021-04-26] MEDS: Carvedilol 3.125 MG TABLET PO ×2 (06:20)
[2021-04-26 06:22] LABS: Absolute Neutrophil Count 4.5 X10^3/uL (2.0-7.7); Basophil# 0.03 X10^3/uL; Basophil% 0.4 % (0-1); Eosinophil# 0.14 X10^3/uL; Eosinophils% 1.8 % (0-5); Hemoglobin 15.4 g/dL (13.0-16.5); Lymphocyte % 27.1 % (19-41); Mean Corp Hgb Conc 31.4 g/dL (32-36); Mean Corpuscular Hgb 29.3 pg (27.0-32.0); Mean Corpuscular Volume 93.3 fL (80-94); Mean Platelet Vol. 10.6 fl (6.2-12.0); Monocyte# 0.99 X10^3/uL; Monocyte% 12.8 % (0-10); NRBC Flagged by Analyzer 0 % (0-5); Neutrophil # 4.48 X10^3/uL (2.7-7.7); Neutrophil % 57.8 % (47-70); Platelet Count 238 K/mm3 (150-450); RBC Distribution Width SD 48.2 fl (35.1-43.9); Red Blood Count 5.25 M/mm3 (4.6-6.2); White Blood Count 7.8 K/mm3 (4.4-11.0)
[2021-04-26 06:45] LABS: Anion Gap 7 (5-15); BUN 26 mg/dL (7-18); BUN/Creat Ratio 24.8 RATIO (10-20); Calcium,Total 8.9 mg/dL (8.5-10.1); Chloride 104 mmol/L (98-107); Creatinine, Serum 1.05 mg/dL (0.70-1.30); EST Glomerular Filtration Rate 78 mL/min (>60); Est Glom Filt Rate - Afr Amer 94 mL/min (>60); Estimated Creatinine Clearance 85.66 ml/min; Glucose 160 mg/dL (74-106); Potassium 3.9 mmol/L (3.5-5.1); Sodium Level 140 mmol/L (136-145)
[2021-04-26 06:56] LABS: Bedside Glucose 161 mg/dL (70-110)
--- NOTE | 2021-04-26 07:28 | PCM.PN.CARD ---
Subjective Subjective Patient seen and evaluated. Underwent cardiac catheterization today Objective Data Vital Signs: Vital Signs Temp Pulse Resp BP Pulse Ox 97.1 F L 92 16 107/73 97 04/26/21 06:17 04/26/21 06:17 04/26/21 06:17 04/26/21 06:17 04/26/21 06:17 Oxygen Delivery Method Room Air Weight: 231 lb 0.711 oz Body Mass Index (BMI) 32.2 Intake & Output: Intake and Output for Last 24 Hours 04/24/21 04/25/21 04/26/21 23:59 23:59 23:59 Intake Total 150 / 210 700 / 700 Balance 150 / 210 700 / 700 Lab / Micro Data Result Diagrams: 04/26/21 05:52 04/26/21 05:52 Labs: Laboratory Results - last 24 hr 04/25/21 04/25/21 04/25/21 06:39 06:58 08:32 WBC RBC Hgb Hct MCV MCH MCHC RDW Std Deviation RDW Coeff of Vance Plt Count MPV Immature Gran % (Auto) Neut % (Auto) Lymph % (Auto) [place] % (Auto) Eos % (Auto) Baso % (Auto) Absolute Neuts (auto) Absolute Lymphs (auto) Nucleated RBC % Sodium 141 Potassium 4.4 Chloride 104 Carbon Dioxide 31.0 Anion Gap 6 BUN 21 H Creatinine 1.06 Estim Creat Clear Calc 84.85 Est GFR (MDRD) Af Amer 93 Est GFR (MDRD) Non-Af 77 BUN/Creatinine Ratio 19.8 Glucose 181 H Calcium 9.1 Triglycerides 74 Cholesterol 147 LDL Cholesterol 102 VLDL Cholesterol 15 HDL Cholesterol 30 L POC Glucose 173 H 176 H 04/25/21 04/25/21 04/25/21 11:49 16:16 21:52 WBC RBC Hgb Hct MCV MCH MCHC RDW Std Deviation RDW Coeff of Vance Plt Count MPV Immature Gran % (Auto) Neut % (Auto) Lymph % (Auto) [place] % (Auto) Eos % (Auto) Baso % (Auto) Absolute Neuts (auto) Absolute Lymphs (auto) Nucleated RBC % Sodium Potassium Chloride Carbon Dioxide Anion Gap BUN Creatinine Estim Creat Clear Calc Est GFR (MDRD) Af Amer Est GFR (MDRD) Non-Af BUN/Creatinine Ratio Glucose Calcium Triglycerides Cholesterol LDL Cholesterol VLDL Cholesterol HDL Cholesterol POC Glucose 159 H 147 H 167 H 04/26/21 04/26/21 04/26/21 05:52 05:52 06:22 WBC 7.8 RBC 5.25 Hgb 15.4 Hct 49.0 MCV 93.3 MCH 29.3 MCHC 31.4 L RDW Std Deviation 48.2 H RDW Coeff of Vance 14.0 Plt Count 238 MPV 10.6 Immature Gran % (Auto) 0.100 Neut % (Auto) 57.8 Lymph % (Auto) 27.1 [place] % (Auto) 12.8 H Eos % (Auto) 1.8 Baso % (Auto) 0.4 Absolute Neuts (auto) 4.5 Absolute Lymphs (auto) 2.10 Nucleated RBC % 0 Sodium 140 Potassium 3.9 Chloride 104 Carbon Dioxide 29.0 Anion Gap 7 BUN 26 H Creatinine 1.05 Estim Creat Clear Calc 85.66 Est GFR (MDRD) Af Amer 94 Est GFR (MDRD) Non-Af 78 BUN/Creatinine Ratio 24.8 H Glucose 160 H Calcium 8.9 Triglycerides Cholesterol LDL Cholesterol VLDL Cholesterol HDL Cholesterol POC Glucose 161 H Micro: Microbiology 04/24/21 13:06 Mucosa - Nasopharyngeal SARS-CoV-2 Antigen (Rapid) - Final Rhythm Strip Rhythm Strip: Sinus tachycardia Rate: 121 Ectopy: PVC(s) Cardiology Labs/Tests 04/25/21 06:58: Sodium 141, Potassium 4.4, Chloride 104, Carbon Dioxide 31.0, Anion Gap 6, BUN 21 H, Creatinine 1.06, Est GFR (MDRD) Af Amer 93, Est GFR (MDRD) Non-Af 77, BUN/Creatinine Ratio 19.8, Glucose 181 H, Calcium 9.1, Triglycerides 74, Cholesterol 147, LDL Cholesterol 102, VLDL Cholesterol 15, HDL Cholesterol 30 L 04/26/21 05:52: WBC 7.8, RBC 5.25, Hgb 15.4, Hct 49.0, MCV 93.3, MCH 29.3, MCHC 31.4 L, Plt Count 238, MPV 10.6, Immature Gran % (Auto) 0.100, Neut % (Auto) 57.8, Lymph % (Auto) 27.1, [place] % (Auto) 12.8 H, Eos % (Auto) 1.8, Baso % (Auto) 0.4, Absolute Neuts (auto) 4.5, Nucleated RBC % 0 04/26/21 05:52: Sodium 140, Potassium 3.9, Chloride 104, Carbon Dioxide 29.0, Anion Gap 7, BUN 26 H, Creatinine 1.05, Est GFR (MDRD) Af Amer 94, Est GFR (MDRD) Non-Af 78, BUN/Creatinine Ratio 24.8 H, Glucose 160 H, Calcium 8.9 Rhythm: EKG: ECHO: Stress Test: Cardiac Cath: PCI: CT Surgery: Holter monitor: EPS: PPM: CXR: Chest CT Scan: Radiography Diagnostic Testing: Radiology Impression Echocardiogram 04/24/21 14:25 Interpretation Summary Normal LV size. The estimated ejection fraction is 15 %. Severe global left ventricular systolic dysfunction. Stage 3 diastolic dysfunction. Severe focal aortic valve calcification. Severe aortic stenosis. Calculated aortic valve area (continuity equation) is 0.5 cm2. Contrast injection was performed. Ordering Physician: Bipin Zeng Performed By: Jackeline Murguia RDCS Physical Exam Const oriented x3 and healthy appearing Orientation / Consciousness: awake HEENT normocephalic Eyes PERRL and conjunctivae normal Neck supple, no JVD and no carotid bruits Chest inspection of chest normal Resp normal respiratory effort and clear to auscultation bilaterally Cardio Palpation: normal PMI Rate: regular rate Rhythm: regular rhythm Heart Sounds: S1 normal, S2 normal and murmur systolic Peripheral Pulses: pulses 2+ throughout GI normal to inspection, nondistended, normoactive bowel sounds Extremity normal to inspection and no clubbing, cyanosis or edema Psych mental status grossly normal Assessment & Plan Assessment/Plan (1) HTN (hypertension), benign: PLAN: Patient appears to have hypertension which is well controlled at this time. I would not recommend that we make any changes with regard to the above. We will discontinue his lisinopril (2) Aortic stenosis: PLAN: Echocardiogram this morning demonstrates severe aortic stenosis and severe left ventricular systolic dysfunction. Left heart catheterization demonstrates no significant obstructive coronary disease. Severely calcified aortic valve likely bicuspid. Would recommend review with the cardiac surgery team as an outpatient to see whether patient will be a candidate for TAVR or a traditional aortic valve replacement (3) Cardiomyopathy: PLAN: He does appear to have a cardiomyopathy with severe left ventricular systolic dysfunction estimated EF 15% Due to the severe aortic stenosis would hold off on high-dose beta-marisabel or OSIRIS inhibitor. We will continue low-dose diuretic
[2021-04-26] MEDS: 0.9% Normal Saline 1,000 ML 60 ML IV (07:50)
--- NOTE | 2021-04-26 07:59 | CL.D_ITS ---
Patient Name: SIMEON العراقي Study Date: 04/26/2021 Performing: Bipin Zeng MD Ht: 71 inches 180 cm : 1965 Wt: 231.8 lbs 105 kg Age: 55 Gender: male BSA: 2.24 PROCEDURE(S) PERFORMED [id number]/COR CLINICAL PROFILE AND INDICATIONS Indications: Valvular Disease Heart Failure: NYHA Class: 3, Newly Diagnosed: Yes, Heart Failure Type: Systolic Stress/Imaging Stress/Image Study Performed: No CAD Presentations: No Sxs, no angina. CONCLUSIONS Non obstructive coronary arteries Aortic Valve Calcification- Severe Aortic Valve Stenosis- Severe RECOMMENDATIONS Will refer to a tertiary care institution to consider TAVR versus traditional aortic valve surgery DESCRIPTION OF PROCEDURE The patient arrived to the procedure lab. The risks and benefits of the procedure as well as a full d escription of our services here and current unavailability of surgical backup were fully explained to the patient and/or their significant other prior to the catheterization. The Timeout was completed, verifying the correct patient and procedure. The patient's procedural site was prepped and draped in the usual fashion. Local anesthetic was given subcutaneously to right radial region with Lidocaine 2% . Using a modified Seldinger technique, arterial access was obtained via the right radial artery, a 6 Fr sheath was inserted. Right Coronary Artery selective angiography was then performed in multiple v iews using a 5 Fr. 4.0 Mccomb catheter. Left Coronary Artery selective angiography was performed in mu ltiple views using a 5 Fr. 4.0 Mccomb catheter. CORONARY ANGIOGRAPHY DOMINANCE: Co- Dominant LEFT HEART ASSESSMENT Left Ventricular Ejection Fraction: by Echo 15 % Depressed Left Ventricular systolic function LEFT MAIN: Mild calcification LEFT ANTERIOR DESCENDING ARTERY: Mild luminal irregularities less than 30% CIRCUMFLEX ARTERY: Mild luminal irregularities RIGHT CORONARY ARTERY: Mild luminal irregularities VALVE FINDINGS: Aortic Valve Calcification - severe Aortic Valve Stenosis - severe COMPLICATIONS No Complications PROCEDURE MEDICATIONS Fentanyl 50 mcg IV Versed 1 mg IV Oxygen: 2 L/min via nasal cannula Heparin 3000 unit(s) IA 04/26/2021 07:14:52 IV Bolus: .9 NaCl 300ml total 04/26/2021 07:17:45 SUMMARY OF HEMODYNAMIC DATA Time AIR REST ECG 06:49:00 Art 103/64 (79) 07:11:55 AO 90/66 (76) SA 07:15:37 AO 82/61 (71) 07:16:37 AO 102/57 (74) 07:17:01 AO 81/65 (73) 07:23:43 AO 97/60 (74) 07:25:56 Art 95/58 (73) 07:26:08 Signed By Bipin Zeng MD On 04/26/2021 07:58:48 Bipin Zeng MD
[2021-04-26] MEDS: Furosemide 40 MG Tablet PO (08:00)
[2021-04-26 08:11] LABS: Bedside Glucose 162 mg/dL (70-110)
--- NOTE | 2021-04-26 10:30 | PCM.DC.SUM ---
Providers Date of Admission: 04/24/21 Primary Care Physician: Stephanie Primary Care Phys Consultations 04/24/21 15:06 Consult: Cardiology Routine Consulting Provider: Bipin Zeng Reason for Consult: acute heart failure, new murmur EMERGENT Consult: No MD Notified: Yes Date Notified:: 04/24/21 Time Notified: 13:03 Method of Notification: Text Reason For Visit: ACUTE HEART FAILURE Diagnosis Discharge Diagnosis (1) HTN (hypertension), benign: Status: Acute Code(s): I10 - Essential (primary) hypertension (2) Aortic stenosis: Status: Acute Code(s): I35.0 - Nonrheumatic aortic (valve) stenosis (3) Cardiomyopathy: Status: Acute Code(s): I42.9 - Cardiomyopathy, unspecified Medications at Discharge Home Medications atorvastatin 20 mg PO QHS #30 tab 04/26/21 empagliflozin 10 mg PO DAILY #30 tab 04/26/21 furosemide [Lasix] 40 mg PO DAILY #30 tab 04/26/21 metformin 500 mg PO BID #60 tab 04/26/21 potassium chloride 20 meq PO DAILY #30 tab 04/26/21 Hospital Course Operations None Procedures 2-D Echocardiogram Summary of Care Provided Minutes Spent on Discharge: 40 Hospital Course: SIMEON العراقي, is a 55 M who presents with a complaint of shortness of breath which had been going on for one week and worsening. He had associated heaviness in his chest, with lower extremity edema. He says he recently had his medical tests 3 weeks ago for his life insurance, and was told his A1C was elevated at 7.8. He does not have a PCP and states he has not seen one in years and did not see any doctor about his A1c yet. He also said he had been having chest pressure and heaviness as the shortness of breath worsened. He denied any orthopnea or PND. He was also found to have a new heart murmur. He denied any palpitations or dizziness, fever chills, nausea vomiting. Review of systems otherwise negative. Vitals in [facility] ED showed temp of 97.9F with HR of 120, blood pressure of 154/113 and respiratory of 24. He was saturating at 97% on room air. CTA of the chest done was negative for PE but showed bilateral pleural effusions. EKG showed no acute ST changes. CBC and BMP were unremarkable and BNP was elevated at 583.8. Initial troponin was negative. He was admitted to be managed for acute heart failure of unknown EF as well as new murmur. He was raised with IV Lasix 40 mg twice daily. He was started on a beta-marisabel and OSIRIS inhibitor as well. He had 2D echo which showed EF of 15% with severe global left ventricular systolic dysfunction and stage III diastolic dysfunction as well as severe aortic stenosis. Cardiology was consulted at admission. He had cardiac cath which showed clean coronaries and EF of 15% with severe aortic stenosis. His blood pressure has been running a bit low also per cardiology, the marisabel and OSIRIS inhibitor were discontinued. Patient was discharged home on 04/26/2021 and is to be referred to a tertiary center on outpatient basis for consideration for aortic valve replacement versus TAVR. Patient seen and examined prior to discharge. He felt much better and had no complaints. Shortness of breath had resolved and lower extremity edema had also improved. Review of symptoms otherwise negative. Labs and vitals reviewed. Medication reviewed and reconciled. Of note, he was discharged on p.o. Lasix 40 mg daily as well as p.o. Metformin, p.o. Jardiance for newly diagnosed diabetes mellitus. He was also placed on a statin-atorvastatin 20mg qhs. Physical Exam Const alert, oriented x3 and no apparent distress General Appearance: cooperative Orientation / Consciousness: awake Exam Limitations: no limitations HEENT normocephalic, head/scalp atraumatic and hearing grossly normal bilaterally Eyes PERRL, EOMs intact bilaterally and conjunctivae normal Neck no lymphadenopathy, supple and no JVD Resp normal respiratory effort, no retractions, no use of accessory muscles and clear to auscultation bilaterally Cardio regular rate, regular rhythm, S1 normal heart sound and S2 normal heart sound Cardio Narrative: grade 2-3 systolic murmur loudest in the aortic region, but also present in the tricuspid and pulmonary valvular regions. GI normal to inspection, nondistended, normoactive bowel sounds, soft to palpation, non-tender and non-distended Extremity normal to inspection and full ROM Extremity Narrative: minimal bipedal edema Skin no rashes or lesions noted Neuro oriented x3 Sensorium / Orientation: awake and alert Psych affect normal ABG / Lab / Microbiology Data Result Diagrams: 04/26/21 05:52 04/26/21 05:52 Laboratory: Laboratory Results - last 24 hr 04/25/21 04/25/21 04/25/21 06:39 08:32 11:49 WBC RBC Hgb Hct MCV MCH MCHC RDW Std Deviation RDW Coeff of Vance Plt Count MPV Immature Gran % (Auto) Neut % (Auto) Lymph % (Auto) [place] % (Auto) Eos % (Auto) Baso % (Auto) Absolute Neuts (auto) Absolute Lymphs (auto) Nucleated RBC % Sodium Potassium Chloride Carbon Dioxide Anion Gap BUN Creatinine Estim Creat Clear Calc Est GFR (MDRD) Af Amer Est GFR (MDRD) Non-Af BUN/Creatinine Ratio Glucose Calcium POC Glucose 173 H 176 H 159 H 04/25/21 04/25/21 04/26/21 16:16 21:52 05:52 WBC 7.8 RBC 5.25 Hgb 15.4 Hct 49.0 MCV 93.3 MCH 29.3 MCHC 31.4 L RDW Std Deviation 48.2 H RDW Coeff of Vance 14.0 Plt Count 238 MPV 10.6 Immature Gran % (Auto) 0.100 Neut % (Auto) 57.8 Lymph % (Auto) 27.1 [place] % (Auto) 12.8 H Eos % (Auto) 1.8 Baso % (Auto) 0.4 Absolute Neuts (auto) 4.5 Absolute Lymphs (auto) 2.10 Nucleated RBC % 0 Sodium Potassium Chloride Carbon Dioxide Anion Gap BUN Creatinine Estim Creat Clear Calc Est GFR (MDRD) Af Amer Est GFR (MDRD) Non-Af BUN/Creatinine Ratio Glucose Calcium POC Glucose 147 H 167 H 04/26/21 04/26/21 04/26/21 05:52 06:22 08:04 WBC RBC Hgb Hct MCV MCH MCHC RDW Std Deviation RDW Coeff of Vance Plt Count MPV Immature Gran % (Auto) Neut % (Auto) Lymph % (Auto) [place] % (Auto) Eos % (Auto) Baso % (Auto) Absolute Neuts (auto) Absolute Lymphs (auto) Nucleated RBC % Sodium 140 Potassium 3.9 Chloride 104 Carbon Dioxide 29.0 Anion Gap 7 BUN 26 H Creatinine 1.05 Estim Creat Clear Calc 85.66 Est GFR (MDRD) Af Amer 94 Est GFR (MDRD) Non-Af 78 BUN/Creatinine Ratio 24.8 H Glucose 160 H Calcium 8.9 POC Glucose 161 H 162 H Microbiology: Microbiology 04/24/21 13:06 Mucosa - Nasopharyngeal SARS-CoV-2 Antigen (Rapid) - Final Radiography Diagnostic Testing: Radiology Impression Echocardiogram 04/24/21 14:25 Interpretation Summary Normal LV size. The estimated ejection fraction is 15 %. Severe global left ventricular systolic dysfunction. Stage 3 diastolic dysfunction. Severe focal aortic valve calcification. Severe aortic stenosis. Calculated aortic valve area (continuity equation) is 0.5 cm2. Bicuspid aortic valve possible. Contrast injection was performed. Ordering Physician: Bipin Zeng Performed By: Jackeline Murguia RDCS D/C Instructions Discharge Diet: 2000 mg Sodium Diet Discharge Activity: Return to Normal Activity Weight Bearing Status: Weight bearing as tolerated Call your doctor if you observe: Shortness of breath, Dizziness, Swelling in the ankles, Chest pain and Increased palpitations (irregular heartbeat) Meaningful Use Info Meaningful Use Diagnoses (Choose all that apply): CHF CHF OSIRIS/ARB ordered at discharge?: No Reason OSIRIS/ARB not ordered?: Hypotension Documented LVEF (%): 15 Discharge Plan Admission Admit Date/Time: 04/24/21 13:03 Primary Reason for Your Visit: acute heart failure, aortic stenosis Attending Provider: Mary Vilchis Primary Care Provider: Care Physician,No Primary Consulting Providers: Bipin Zeng Instructions Patient Instructions: Aortic Valve Stenosis, ED Heart Failure Congestive Right Discharge Orders/Prescriptions Prescriptions: New furosemide [Lasix] 40 mg tablet 40 mg PO DAILY Qty: 30 RF: 1 potassium chloride 20 mEq tablet extended release 20 meq PO DAILY Qty: 30 RF: 1 metformin 500 mg tablet 500 mg PO BID Qty: 60 RF: 1 empagliflozin 10 mg tablet 10 mg PO DAILY Qty: 30 RF: 1 atorvastatin 20 mg tablet 20 mg PO QHS Qty: 30 RF: 1 Referrals / Follow Up: Bipin Zeng MD [STAFF PHYSICIAN] - Within 1 Month Grisel Rockwell MD [STAFF PHYSICIAN] - Within 1 Month (call office to set up PCP appointment) Care Physician,No Primary [Primary Care Provider] - Disposition Disposition (needs filled in before D/C Order can be placed): Home, self care Visit Charges Inpatient E&M: [id number] Disch Hosp
[2021-04-26] MEDS: Insulin Lispro 100 UNIT/ML INSULN.PEN SC (11:03)
[2021-04-26 11:10] LABS: Bedside Glucose 235 mg/dL (70-110)
--- NOTE | 2021-04-26 14:01 | PHA.DC.MR ---
Pharmacy Service has performed discharge medication reconciliation for this patient. The patient's discharge medication list was reviewed for discrepancies and discrepancies were resolved. Discharge paperwork prepared but pt was gone when this h went to room. Unable to ask if pt has a glucometer. Meds reviewed. Home Medications atorvastatin 20 mg PO QHS #30 tab 04/26/21 empagliflozin 10 mg PO DAILY #30 tab 04/26/21 furosemide [Lasix] 40 mg PO DAILY #30 tab 04/26/21 metformin 500 mg PO BID #60 tab 04/26/21 potassium chloride 20 meq PO DAILY #30 tab 04/26/21
--- NOTE | 2021-04-27 14:08 | CASEMGMT ---
TREVON FRANCO Discharge Follow-Up Phone Call. Ariana: Janel Strata: 3 Discharge Date: 04/26/21 Adm Dx: Acute Heart Failure Call to pt to inquire about how he has been doing since being discharged from the hospital. Pt's answered and states can answer questions. She states pt is doing really good. 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 She states they told her the K+ would be available today, which they will be picking up today, and hopefully the other 3 prescriptions. TREVON FRANCO informed , if pharmacy does not have the other 3 medications in stock today, that the scripts could be transferred to another pharmacy that has them in stock so that pt does not miss more doses. She voices understanding. She states they have been checking pt's BS's and they have been in the 130's mostly. She has not made an appt w/Dr Zeng yet, as she states Dr Zeng informed her appt did not need to be made with him until after pt sees his [employer] consultant and has surgery. She has not made an appt w/Dr Rockwell yet, but plans to do so. She denies having any questions about any of the medications or discharge instructions. Flako GUIDO RN, CM
== END 2021-04-26 14:13 | disposition home or self-care (01) | DRG 286 ==
LOC: ED 13:00 → PCU 13:16
PROVIDERS: Admitting Provider Student in an Organized Health Care Education/Training Program; Emergency Provider Emergency Medicine; Visit Provider Student in an Organized Health Care Education/Training Program
DX: I11.0 Hypertensive heart disease with heart failure (principal); I50.21 Acute systolic (congestive) heart failure; E11.9 Type 2 diabetes mellitus without complications; I42.9 Cardiomyopathy, unspecified; I35.0 Nonrheumatic aortic (valve) stenosis
CPT/HCPCS: 36415; 71275; 80048; 80061; 82962; 83036; 83735; 83880; 84443; 84484; 85025; 87426; 93005; 93306; 93454; 99152; 99153; 99251; 99284; J7030; Q9957; Q9967; A4216; C1769; C1894; C8929; G0463; J1940